=== PATIENT | male | born 1935 | race Two or more races ===

== ENCOUNTER → 2016-10-25 | Outpatient (CLI) | payer MEDICARE, OTHER ==
[~2016-10-25] MED LIST: AMBIEN10 MG PO; ANUSOL-HC CREAM30 GM TOP; ASPIRIN LO-DOSE81 MG PO; FLOMAX0.4 MG PO; LEVOFLOXACIN500 MG PO; LEVOTHROID(SYN75 MCG PO; LIPITOR40 MG PO; MILK OF MA400 MG/5 M PO; MIRAPEX0.25 MG PO; NITRO-BID1 GM TOP; NORCO 5-325 TA1 EACH PO; PLAVIX75 MG PO; PRINIVIL (ZESTRI5 MG PO; PROSCAR5 MG PO
== END ==
LOC: LNHI 16:55
DX: I25.119 Atherosclerotic heart disease of native coronary artery with unspecified angina pectoris (principal); R60.9 Edema, unspecified; G25.81 Restless legs syndrome

== ENCOUNTER 2017-02-10 07:25 | Inpatient (IN) | payer MEDICARE, OTHER ==
[~2017-02-10] VITALS: Ht 165.1 cm; Wt 68.2 kg
--- NOTE | ~2017-02-10 | CON ---
PATIENT'S NAME: [facility] AGE: 81 Y [address] ROOM: [id number] [place], [place] [address] LOCATION: [facility] ADMIT DATE: 02/10/2017 Consultation DISCHARGE DATE: FAMILY PHYSICIAN: Mony Jones APRN ATTENDING PHYSICIAN: Lucia Dover DATE OF CONSULTATION: 02/10/2017 REASON FOR CONSULTATION: Perirectal pain. HISTORY OF PRESENT ILLNESS: The patient is an 81-year-old male who was admitted by Dr. Dover for spinal stenosis; however, he has been complaining of significant rectal pain. He had been placed on antibiotics on the with concerns for cellulitis in this area. Subsequently, he had a CT scan here that did reveal a fluid collection, not felt to be an abscess as there was no air within this; however, with his severe pain, I was consulted for this. The patient states that he never had pain similar to this in the past. No previous history of perirectal abscess. There is some questionable history of whether or not he is a type 2 diabetic; however, does not take any medication for this. Denies elevated blood sugars. He also has had some urinary retention. He is on finasteride. He has been having no blood or drainage in the perirectal area. He has never had a colonoscopy. ALLERGIES: NONE. CURRENT MEDICATIONS: 1. [place]. 2. Zolpidem. 3. Finasteride. 4. Plavix. 5. Atorvastatin. 6. Levothyroxine. 7. Mirapex. 8. Lisinopril. 9. Baby aspirin. CURRENT ILLNESSES: Coronary artery disease, urinary retention, spinal stenosis, hypercholesterolemia, and hypothyroidism. PREVIOUS SURGERIES: Right shoulder surgery and stent placement. PATIENT'S NAME: [facility] AGE: 81 Y [address] ROOM: [id number] [place], [place] [address] LOCATION: [facility] ADMIT DATE: 02/10/2017 Consultation DISCHARGE DATE: FAMILY PHYSICIAN: Mony Jones APRN ATTENDING PHYSICIAN: Lucia Dover PHYSICAL EXAMINATION: GENERAL: Pleasant, cooperative, 81-year-old male who is extremely uncomfortable. HEENT: Head is normocephalic and atraumatic. Eyes are anicteric. NECK: Without lymphadenopathy. HEART: Regular rate and rhythm. LUNGS: Clear to auscultation bilaterally. ABDOMEN: Soft and nontender. RECTAL: Examination of his perianal area reveals significant amount of erythema with edema. I cannot feel a fluctuant area. Digital examination reveals exquisite tenderness. No masses are present. Assessment is perirectal erythema with concerns for abscess. Plan: I have discussed the findings with Karolina. Although this does not appear as an abscess by CT scan, I discussed attempts at aspiration to prove whether or not there is purulent material present, and he wished to proceed with this in the patient's room. He was in the left lateral decubitus position. The area overlying the most erythematous portion, which was extrasphincteric, was palpated. An 18-gauge needle was inserted, and 5 mL of purulent material was obtained consistent with abscess. ASSESSMENT: Perianal abscess. PLAN: At this point in time, I discussed the findings with Karolina. I think it would be best to perform incision and drainage as I do not feel this was adequately drained with aspiration alone. I discussed the risks, benefits, and alternatives of this including fistula formation. He understood the risks and elected to proceed. PROCEDURE: In the patient's room, he was prone. His perianal area was cleansed with ChloraPrep. Local anesthetic was infiltrated. An incision was then created and carried through the subcutaneous tissues down to the abscess cavity. This was drained. Loculations were cleared. This was then packed with half-inch packing strip. He tolerated this well. MONICA FENTON MD PATIENT'S NAME: KAROLINA HOFFMAN [facility] AGE: 81 Y [address] ROOM: [address] [address] LOCATION: [facility] ADMIT DATE: 02/10/2017 Consultation DISCHARGE DATE: FAMILY PHYSICIAN: Mony Jones APRN ATTENDING PHYSICIAN: Lucia Dover/marcus /[id number] d: 02/10/178 t: 02/22/17 1331, CONSULTATION REPORT
--- NOTE | ~2017-02-10 | DS ---
PATIENT'S NAME: KAROLINA LÓPEZ [facility] AGE: 81 Y [address] ROOM: [address] [address] LOCATION: G3N ADMIT DATE: 02/10/2017 Discharge Summary DISCHARGE DATE: 02/12/2017 FAMILY PHYSICIAN: Mony Jones APRN ATTENDING PHYSICIAN: Lucia Dover DIAGNOSIS: Perirectal abscess. SUMMARY: Mr. López is an 81-year-old gentleman who was admitted to [facility] by Dr. Dover for spinal stenosis and rectal pain. Dr. Dacosta was consulted after a CT scan revealed a fluid collection. The patient had previously been treated for some cellulitis in the perirectal area. The patient denied ever having any pain like this before. He had no prior history of perirectal abscess. Dr. Dacosta noted significant amount of erythema with edema. Digital exam revealed exquisite tenderness. No masses were present. Dr. Dacosta proceeded with aspiration which resulted in purulent material consistent with abscess. He discussed incision and drainage of the abscess and patient gave consent to proceed at the bedside. Please see Dr. Dacosta's consultation which includes the procedure note in it. The wound was packed with packing strip. His was taught how to take care of this. Arrangements were made for the patient to discharge on February 11, but the patient had urinary retention and so he did stay. On February 12, the patient was up in the shower. The wound site looked okay. He had voided. Vital signs were stable, and it was felt that the patient was able to discharge home. DISCHARGE INSTRUCTIONS: Included no restrictions on diet. No restrictions on activity. He is to continue with b.i.d. dressing changes. He will follow up with Dr. Dacosta in 1 week, Dr. Dover in 3 weeks. He is to shower with the dressing out. DISCHARGE MEDICATIONS: Levaquin 250 mg p.o. daily x7 days. Otherwise, he will continue his usual home medications of: 1. [place] 10/325. 2. Ambien 10 mg. 3. Proscar 5 mg. 4. Plavix 75 mg. 5. Lipitor 40 mg. 6. Levothroid 75 mcg. 7. Mirapex 0.5 mg. 8. Prinivil 5 mg. 9. Aspirin 81 mg. 10. Discontinue Anusol-HC. 11. Discontinue Nitro-Bid. PATIENT'S NAME: KAROLINA LÓPEZ [facility] AGE: 81 Y [address] ROOM: [address] [address] LOCATION: [facility] ADMIT DATE: 02/10/2017 Discharge Summary DISCHARGE DATE: 02/12/2017 FAMILY PHYSICIAN: Mony Jones APRN ATTENDING PHYSICIAN: Lucia Dover 12. Continue milk of magnesia 30 mL p.o. at bedtime. 13. Flomax 0.4 mg p.o. at bedtime. For specifics on day-to-day care, please refer to the hospital chart. GMÓEZ LOYD PA-C FOR MD SERGEY DUNLAPK/marcus /[id number] CC: ROYA Cedillo MD d: 02/16/17 0631 t: 02/16/17 0650, DISCHARGE SUMMARY
--- NOTE | ~2017-02-10 | ER ---
[facility] 81 Y [address] ROOM: [place] [address] LOCATION: [facility] ADMIT DATE: 02/10/2017 ER/Outpatient Report DISCHARGE DATE: FAMILY PHYSICIAN: Mony Jones APRN ATTENDING PHYSICIAN: Lucia Dover CHIEF COMPLAINT: Rectal pain. HISTORY OF PRESENT ILLNESS: Mr. López notes that since last Sunday, he has had pain in his rectum. He has not had a bowel movement for 2 days. He is chronically on hydrocodone for chronic pain issues. He was treated through [facility] by Rodrigo Jones APRN, for anal fissures with nitroglycerin cream and hydrocortisone cream. He also has not been able to pee since Sunday and received a Ray catheter. That was removed yesterday, and he has not peed since then. He is having increasing pain in his rectum, and that is why he came to the ER here today. He denies any fevers or chills, but states he cannot poop or pee, and it is unclear whether that is because of the pain or something else. PAST MEDICAL HISTORY: Documented on the record and reviewed by me. SOCIAL HISTORY: Documented on the record and reviewed by me. MEDICATIONS: Documented on the record and reviewed by me. ALLERGIES: DOCUMENTED ON THE RECORD AND REVIEWED BY ME. REVIEW OF SYSTEMS: All systems reviewed and negative except as noted in the HPI. PHYSICAL EXAMINATION: VITAL SIGNS: Blood pressure 137/70, pulse 107, respiratory rate is 24, temperature 97.3, and SpO2 is 97% on room air. Pain is rated at 10/10. GENERAL: Age-appropriate male, recumbent on the exam table, in no apparent distress, in [id number] pain. NEUROLOGIC: Awake and alert. GCS appears to be 15. No focal deficits. No asymmetry. HEENT: Normocephalic, atraumatic. Eyes are PERRL. Oropharynx is clear. NECK: Supple. Trachea is midline. CHEST: Heart is tachycardic. No murmurs. Lungs are clear to auscultation [facility] 81 Y [address] ROOM: [place] [address] LOCATION: N ADMIT DATE: 02/10/2017 ER/Outpatient Report DISCHARGE DATE: FAMILY PHYSICIAN: Mony Jones APRN ATTENDING PHYSICIAN: Lucia Dover bilaterally. No rhonchi, wheezes, or rales. ABDOMEN: Soft, nontender, and nondistended. Slight suprapubic fullness and tenderness. BACK: Normal to inspection and palpation. There is no spinal or paraspinal tenderness. RECTAL: Notable for marked erythema surrounding the anus. Some induration. No clear fluctuance. There are large hemorrhoids present. No anal fissures visualized. The rectal exam is very exquisitely tender. There does not appear to be any abscesses internally. There is stool in the rectal vault which is hard. Rectal tone is present. EXTREMITIES: Warm and well perfused. There are no obvious deformities. SKIN: Appears to be clean, dry, and intact otherwise. LABORATORY AND X-RAY DATA: MRI of the lumbar spine is concerning for severe canal stenosis at multiple levels. Pelvic CT is notable for likely phlegmon versus possible perirectal cancer versus abscess. Labs: Urinalysis with 25 leukocytes, 30 protein, and 150 blood. Micro with 2 to 5 wbc's, 10 to 20 rbc's, 0 to 2 epithelials, and no bacteria. White count is 14.5 with 11.2 neutrophils, hemoglobin 12.1, and platelets of 322. ESR is 71. Procalcitonin 0.06. CRP is 8.25. CMS is unremarkable for electrolyte abnormalities. BUN is 26, creatinine 1.4, and GFR is 46. No appreciable LFT abnormalities. Lactate is 2.1. IMPRESSION: Urine and stool retention concerning for: 1. Severe spinal canal stenosis at multiple levels with possible cauda equina syndrome. 2. Possible perirectal abscess versus tumor versus phlegmon. EMERGENCY DEPARTMENT COURSE: The patient was seen and evaluated as above. A video county records management officer was used to facilitate evaluation. Physical exam was indicated and produced evaluation with CT and MR as noted above. Dr. Dover, neurosurgeon, was consulted for the spine findings. He will admit the patient and obtain surgical consult for the anal findings. The patient has multiple etiologies that could present his current presentation. I do not know that he clearly is infected at this time, though his inflammatory markers are indicative of same. We will defer antibiotic management to Dr. Wheat. The patient was kept n.p.o. He was given fentanyl and Dilaudid for pain. He was given 1 L of fluids for mild elevation of his lactate and some azotemia, and he was treated with Zofran for nausea. He remained stable and was admitted under the care of Dr. Dover to the hospital for further evaluation and treatment. PATIENT'S NAME: KAROLINA LÓPEZ [facility] AGE: 81 Y [address] ROOM: [address] [address] LOCATION: [facility] ADMIT DATE: 02/10/2017 ER/Outpatient Report DISCHARGE DATE: FAMILY PHYSICIAN: Mony Jones APRN ATTENDING PHYSICIAN: Lucia Dover MD FLOWER BRUNO/marcus /[id number] d: 02/10/17 1830 t: 02/20/17 0622, OUTPATIENT REPORT
--- NOTE | ~2017-02-10 | HP ---
[facility] 81 Y [address] ROOM: [place] [address] LOCATION: [facility] ADMIT DATE: 02/10/2017 History & Physical DISCHARGE DATE: FAMILY PHYSICIAN: Mony Jones APRN ATTENDING PHYSICIAN: Lucia Dover DATE OF SERVICE: 02/10/2017 REFERRING PHYSICIAN: The patient was referred by Dr. Melvin Jones, ER physician. REASON FOR REFERRAL: Spinal stenosis. PATIENT IDENTIFICATION: Karolina López is an 81-year-old male. PRESENTING COMPLAINT: Pain around the anus. HISTORY OF PRESENT ILLNESS: The patient has had pain around his rectum and anus for about 5 days. Symptoms came on gradually. The pain is rated as severe. There is no history of injury to the buttock area. It appears that patient has been treated in [place] already with antibiotics on account of this rectal pain. He is still having a lot of pain. The patient was seen in the emergency room and had a lumbar spine MRI as well as a pelvic CT scan. Imaging studies showed very severe spinal stenosis at L2-L3, L3-L4, and L4-L5 and also showed collection in the pelvic area just anterior to the coccyx. I was consulted to see the patient for the spinal stenosis. The patient also complained of not being able to pass urine or move his bowels and this was concerning for possible cauda equina syndrome. PAST MEDICAL HISTORY: 1. Coronary artery disease. 2. Hypercholesterolemia. 3. Hypothyroidism. 4. Possible type 2 diabetes. CURRENT MEDICATIONS: 1. [place]. 2. Zolpidem. 3. Finasteride. PATIENT'S NAME: [facility] AGE: 81 Y [address] ROOM: [place] [address] LOCATION: [facility] ADMIT DATE: 02/10/2017 History & Physical DISCHARGE DATE: FAMILY PHYSICIAN: Mony Jones APRN ATTENDING PHYSICIAN: Lucia Dover 4. Plavix. 5. Atorvastatin. 6. Levothyroxine. 7. Mirapex. 8. Lisinopril. 9. Baby aspirin. ALLERGIES: NONE. FAMILY HISTORY: There is no family history relevant to present situation. SOCIAL HISTORY: The patient is . REVIEW OF SYSTEMS: A full review of systems was carried out. The only abnormal findings as described in the history of present illness. PHYSICAL EXAMINATION: GENERAL: The patient is a healthy-looking gentleman who appeared to be in significant pain, lying on the gurney in the emergency room. VITAL SIGNS: In the ER, blood pressure is 137/70, pulse rate is 107, and temperature 97.3. NEUROLOGIC: The patient is awake and alert. Speech; his speech is clear and lucid. Cranial nerves; no deficits seen. Motor examination; the patient has normal strength in his arms and in his legs, it is difficult to examine him because of the pain around his rectal area, but as much as I can tell he appears to have no significant weakness in his legs. He does have some slight weakness of his left dorsiflexor. This could also be from the pain. CARDIOVASCULAR SYSTEM: Heart sounds are present. RESPIRATORY SYSTEM: The patient is not short of breath at bedside. EXTREMITIES: No cyanosis or clubbing. SKIN: No skin rashes or skin masses. On perirectal area, there is significant redness around the anus with some induration. The patient has external hemorrhoids as well. RECTAL: Deferred. BACK: No tenderness to palpation. REVIEW OF IMAGING STUDIES: The patient has had lumbar MRI scan. The MRI shows severe spinal stenosis at L2-L3, L3-L4 and L4-L5, where there is also the subluxation. Pelvic CT; the patient has a mass-like prominence in the region of the anus. The primary differential diagnoses are inflammation, infection, versus tumor. [facility]GE: 81 Y [address] ROOM: [address] [address] LOCATION: [facility] ADMIT DATE: 02/10/2017 History & Physical DISCHARGE DATE: FAMILY PHYSICIAN: Mony Jones APRN ATTENDING PHYSICIAN: Lucia Dover We were not able to obtain a contrast imaging because of the patient's low GFR. ASSESSMENT: An 81-year-old male with chief complaint of pain around the anus with associated difficulty with urination and bowel movements. Imaging studies showed severe spinal stenosis in the lumbar region as well as mass in the perirectal area. MEDICAL DECISION MAKING: The patient has been admitted for further evaluation. At this point, a General Surgery consult has been requested to evaluate the patient for possible ischiorectal abscess. If this does not turning machine operator helper to be the case, the patient may need decompression for his severe spinal stenosis as this could contribute to or even cause his urinary retention and inability to move his bowels. The patient is on Plavix and this will have to be held prior to any surgical intervention, if this is going to be done. MD KAMLESH AMADOR/marcus /[id number] CC: Mony Jones APRN D: [id number] T: [id number] HISTORY & PHYSICAL
[2017-02-10 08:11] LABS: BASOPHIL # 0.1 K/uL (0.0-0.2); BASOPHIL % 0.4 %; EOSINOPHIL # 0.1 K/uL (0.0-0.5); EOSINOPHIL % 0.6 %; HEMOGLOBIN 12.1 g/dL (11.0-16.0); IMMATURE GRANULOCYTE # 0.2 K/uL (0.0-0.3); IMMATURE GRANULOCYTE % 1.7 %; LYMPHOCYTE # 1.9 K/uL (0.8-4.0); LYMPHOCYTE % 12.8 %; MCH 31.8 pg (27.0-34.0); MCHC 33.6 gm/dL (32.0-36.5); MCV 94.5 fl (83.0-98.0); MPV 9.5 fl (9.4-12.4); NEUTROPHIL # (ANC) 11.2 K/uL (1.4-9.0); NEUTROPHIL % 77.5 %; NRBC % 0 /100WBC (0-0.00); PLATELET COUNT 222 K/uL (150-450); RBC 3.81 M/uL (3.50-5.50); RDW-CV 13.6 % (11.9-14.6); WBC 14.5 K/uL (4.0-11.0)
[2017-02-10 08:27] LABS: ALBUMIN 2.9 gm/dL (3.5-5.0); CALCIUM 8.4 mg/dL (8.5-10.5); CREATININE 1.4 mg/dL (0.6-1.3); TOTAL PROTEIN 7.4 g/dL (6.0-8.4)
[2017-02-10 08:49] LABS: BILIRUBIN URINE NEGATIVE (NEGATIVE); BLOOD URINE 150 /UL (NEGATIVE); COLOR URINE YELLOW (YELLOW); GLUCOSE URINE NEGATIVE (NEGATIVE); KETONE URINE NEGATIVE (NEGATIVE); LEUKOCYTES URINE 25 /UL (NEGATIVE); NITRITE URINE NEGATIVE (NEGATIVE); PROTEIN URINE 30 mg/dL (NEGATIVE); SPEC GRAVITY URINE 1.015 (1.003-1.035); UROBILINOGEN URINE NORMAL (NORMAL)
[2017-02-10 08:53] LABS: TURBIDITY URINE 1+ (CLEAR)
[2017-02-10 08:57] LABS: BACTERIA URINE NEGATIVE (NEGATIVE); EPITHELIAL URINE 0-2 #/HPF (NEGATIVE); MUCUS URINE 1+ (NEGATIVE)
[2017-02-11] MEDS ORDERED: NORCO 5-325 TA1 EACH PO (07:21)
[2017-02-11] MEDS ORDERED: AMBIEN10 MG PO (07:21)
[2017-02-11] MEDS ORDERED: PLAVIX75 MG PO (07:22)
[2017-02-11] MEDS ORDERED: PROSCAR5 MG PO (07:22)
[2017-02-11] MEDS ORDERED: LIPITOR40 MG PO (07:23)
[2017-02-11] MEDS ORDERED: LEVOTHROID(SYN75 MCG PO (07:26)
[2017-02-11] MEDS ORDERED: MIRAPEX0.25 MG PO (07:29)
[2017-02-11] MEDS ORDERED: ASPIRIN LO-DOSE81 MG PO (07:32)
[2017-02-11] MEDS ORDERED: PRINIVIL (ZESTRI5 MG PO (07:32)
[2017-02-11] MEDS ORDERED: ANUSOL-HC CREAM30 GM TOP (07:33)
[2017-02-11] MEDS ORDERED: NITRO-BID1 GM TOP (07:35)
[2017-02-11] MEDS ORDERED: MILK OF MA400 MG/5 M PO (07:35)
[2017-02-11] MEDS ORDERED: LEVOFLOXACIN500 MG PO (07:37)
[2017-02-11] MEDS ORDERED: FLOMAX0.4 MG PO (07:38)
== END 2017-02-12 16:10 | disposition disaster alternative care site (69) | DRG 346 ==
LOC: GMED 07:25 → G3N 10:35
PROVIDERS: Emergency Medicine; ADMIT Neurological Surgery
PROC: 0D9P0ZZ Drainage of Rectum, Open Approach (ICD-10-PCS; principal; 2017-02-10)
DX: K61.1 Rectal abscess (principal); E11.9 Type 2 diabetes mellitus without complications; E03.9 Hypothyroidism, unspecified; I25.10 Atherosclerotic heart disease of native coronary artery without angina pectoris; M48.06 Spinal stenosis, lumbar region; R33.9 Retention of urine, unspecified; Z86.39 Personal history of other endocrine, nutritional and metabolic disease
CPT/HCPCS: J1170; J1956; J2270; J2405; J3010; J7030; J7050